=== PATIENT | male | born 1950 | race Caucasian/White ===

== ENCOUNTER 2023-07-31 16:48 | Outpatient (CLI) | payer MEDICARE, SELFPAY ==
--- NOTE | ~2023-07-31 | XR_ITS ---
EXAMINATION: XR hand LT min 3V DATE: 07/31/2023 17:05 INDICATION: Left hand injury. TECHNIQUE: 3 views of left hand were obtained. COMPARISON: None. FINDINGS: Bone alignment is normal. No fracture. There is mild osteoarthritis of triscaphe joint and severe osteoarthritis of first carpometacarpal joint. There is mild osteoarthritis of some the interp halangeal joints. There is moderate osteoarthritis of fifth distal interphalangeal joint. Splint mate rial obscures fine bone detail. IMPRESSION: 1. Polyarticular osteoarthritis. Reviewed, dictated and finalized at location A.
== END 2023-07-31 16:49 | disposition home or self-care (01) ==
LOC: ANHIMG 16:53
PROVIDERS: Visit Provider Plastic Surgery
DX: S61.412A Laceration without foreign body of left hand, initial encounter (principal); X58.XXXA Exposure to other specified factors, initial encounter; M19.042 Primary osteoarthritis, left hand
CPT/HCPCS: 73130

== ENCOUNTER 2023-08-01 10:22 | Outpatient (CLI) | payer MEDICARE, SELFPAY ==
--- NOTE | 2023-08-01 10:30 | ECG_ITS ---
Measurements Intervals [place] Rate: 44 P: 44 MS: 183 QRS: 3 QRSD: 92 T: 22 QT: 478 QTc: 413 Interpretive Statements SINUS BRADYCARDIA EARLY PRECORDIAL R/S TRANSITION BASELINE ARTIFACT- I, II, III, AVR, AVL, AVF ABNORMAL ECG NO PREVIOUS ECG AVAILABLE FOR COMPARISON Electronically Signed On 08-01-2023 11:22:51 CDT by Jose Griggs D.O.
[2023-08-01 11:02] LABS: Anion Gap 7 mmol/L (8-16); Blood Urea Nitrogen 20 mg/dL (9-20); Calcium 9.6 mg/dL (8.4-10.2); Carbon Dioxide 26 mmol/L (22-30); Chloride 104 mmol/L (98-107); Estimated Glomerular Filt Rate > 60; Glucose 119 mg/dL (65-110); Potassium 4.1 mmol/L (3.4-5.0); Sodium 137 mmol/L (137-145)
== END 2023-08-01 10:23 | disposition home or self-care (01) ==
LOC: ANHSURGERY 10:27
PROVIDERS: Anesthesiology; Visit Provider Plastic Surgery
DX: Z01.812 Encounter for preprocedural laboratory examination (principal); Z01.810 Encounter for preprocedural cardiovascular examination; I10 Essential (primary) hypertension; Z51.81 Encounter for therapeutic drug level monitoring; R00.1 Bradycardia, unspecified
CPT/HCPCS: 36415; 80048; 93005

== ENCOUNTER 2023-08-02 00:28 | Day surgery (SDC) | payer MEDICARE, SELFPAY ==
[2023-08-01 09:30] VITALS: BMI 28.3
--- NOTE | 2023-08-01 09:50 | PC.NURSE ---
Report to the Outpatient Waiting Room, entrance under the green pavilion located off [facility], at time __12:00PM on date __08/02/23 . Planned Procedure Time: _2:00PM . Time changes happen often and if your time is changed the preop area will call you the afternoon before. - You and your visitor will be asked to self-screen and do not enter if you have any COVID symptoms. - A mask is optional within the hospital at this time. Patients may have clear liquids (water, carbonated beverages, clear teas, apple juice) until 8 hours prior to surgery with a maximum of 20 ounces. - No food from midnight until time of surgery. Take the following medications with a SIP of water the morning of surgery: ___CITALOPRAM, METOPROLOL DO NOT STOP ANY OF YOUR OTHER PRESCRIPTION MEDICATIONS PRIOR TO SURGERY ?EXCEPT THE FOLLOWING Medications to discontinue per physician _HOLD ALL VITAMINS/SUPPLEMENTS STARTING NOW-08/01/23 Please no make-up, nail mongolian, hairspray, perfume, deodorant, or body powder the day of surgery. No jewelry (including any body piercings) or valuables the day of surgery, leave them at home. Please take a shower or bath the night before, or the morning of, surgery with an antibacterial soap. Wear comfortable, loose fitting clothing. Children are encouraged to wear pajamas. - Jewelry must be removed prior to entering the operating room. Rings and piercings that are not removed may be cut off. - The hospital will not accept responsibility for valuables. - Please leave all valuables, including medications, at home the day of surgery. If you are going home after surgery, a licensed wheat combine driver must drive you home. - NO public transportation without another adult if you receive anesthesia. - We recommend that an adult stay with you for 24 hours following discharge. - We also recommend that you do not drive, make important decision, drink alcoholic beverages, or take any drugs that were not prescribed by your health care provider for at least 24 hours after your discharge time. Follow any additional instructions given to you from your surgeon. If you or anyone in your household have experienced Covid symptoms in the past week, please notify your surgeon or the nurse liaison at the phone number below for possible testing. Telephone instructions given to __PATIENT and asked if any additional questions and then verbalized understanding. Patient advised to call surgeon office or pre surgery nurse liaison [phone] if any additional questions.
[2023-08-02] VITALS (10 sets, daily range): BP systolic 146–186; BP diastolic 63–99; PULSE 52–58; RESP 10–20; TEMP 36.2–36.3; O2SAT 96–100
--- NOTE | 2023-08-02 12:18 | WPDHPUPDATE1 ---
History and Physical Update Update Date/Time: 08/02/23 12:18 Patient seen and examined in pre-operative holding area. No interval change in medical history or symptoms. Continues to desire to proceed with left small finger exploration, possible fds and/or fdp repair, possible tendon excision, posible stephen jose alberto placment possible digital nerve repair and all necessary procedures.. Reviewed proceudre, post-op expectations and risks including but not limited to bleeding, infection, injury to tendon/nerve/vessel, decreased hand function, stiffness, RSD, no change or worsening of symptoms, failure of repair. Patient stated understanding and signed the consent form wishing to proceed.
[2023-08-02] MEDS: LACTATED RINGERS 1,000 ML 30 ML IV CONT ×2 (12:45→15:53)
--- NOTE | 2023-08-02 13:27 | WPDANESEPPF ---
Anes - Initial Pre Proc Eval Procedure: Operation Date: 08/02/23 14:00 Proposed Procedures p Left Small Finger Flexor Tendon Exploration and Repair - Matthew Chavez MD Date/Time: 08/02/23 13:27 Surgeon: Matthew Chavez MD Pre Op Diagnosis: laceration of flexor tendon of hand Patient Data Age: 73 Gender: M Height: 1.75 m Weight: 87.2 kg Last Vital Signs Temp 36.2 C L 08/02/23 12:58 Pulse 58 L 08/02/23 12:58 Resp 20 08/02/23 12:58 BP 146/99 H 08/02/23 12:58 Pulse Ox 97 08/02/23 12:58 O2 Del Method Room Air 08/02/23 12:58 Allergies Allergy/AdvReac Type Severity Reaction Status Date / Time bupropion [From Wellbutrin] Allergy Severe Swelling Verified 08/02/23 12:47 of Lip/Tongue/Throat Home Medications Medication Instructions Recorded Confirmed Type simvastatin 40 mg tablet 40 mg PO DAILY #90 tabs 04/17/20 08/02/23 Rx omeprazole 20 mg capsule,delayed 20 mg PO DAILY #90 caps 04/22/20 08/02/23 Rx release allopurinol 300 mg tablet 300 mg PO DAILY #90 tabs 07/23/20 08/02/23 Rx allopurinol 100 mg tablet 50 mg PO DAILY 08/01/23 08/02/23 History cholecalciferol (vitamin D3) 50 50 mcg PO DAILY 08/01/23 08/01/23 History mcg (2,000 unit) capsule citalopram 10 mg tablet 10 mg PO QAM 08/01/23 08/02/23 History citalopram 40 mg tablet 40 mg PO QAM 08/01/23 08/02/23 History hydrochlorothiazide 25 mg tablet 25 mg PO QAM 08/01/23 08/02/23 History metoprolol succinate 50 mg 50 mg PO QAM 08/01/23 08/02/23 History tablet,extended release 24 hr mometasone 50 mcg/actuation nasal 2 spray intranasal QAM 08/01/23 08/02/23 History spray multivitamin-ferrous 1 tablet PO DAILY 08/01/23 08/02/23 History fumarate-folic acid 18 mg-400 mcg tablet (Centrum Complete) Patient hx anesthesia problems: none Family hx anesthesia problems: none Results Review: All pre-operative results and documents have been reviewed as part of the pre-operative evaluation. [facility] Past Medical History Medical History (Updated 08/02/23 @ 13:27 by Ross Kaur MD) Gout HTN (hypertension) Overweight Family History Family History Other Diabetes mellitus Family history of gout Family history of malignant neoplasm of breast Hypertension Social History Social History Smoking packs per day: 1 Smoking cigarettes per day: 20.0 Years smoked: 20 Smoking pack-years: 20.00 Smoking status: Former smoker Tobacco type: cigarettes Smoking end date: 05/06/90 Alcohol intake: current Substance use: never Lack of Transportation: No Lack of Food: Never True Current Housing: I Have Housing Concerned About Future Housing: No Difficulty Paying for Meds: No Currently Unemployed: No Education: High School Diploma/GED Difficulty w/ Childcare or Family Care: No Living arrangements: with family Additional living arrangements comments: Spiritual care concerns: No Anes - Eval Final PreProcedure Day of Procedure 08/02/23 13:27 Patient weight: overweight Heart: regular rate and rhythm Lungs: clear to auscultation Airway: Mallampati scale class II Neurological: alert and oriented Last oral intake: >/= 8 hours ASA classification: III Emergent: no Anesthetic plan: proceed Anesthesia type and monitoring: general LMA and standard monitoring Results Review: All pre-operative results and documents have been reviewed as part of the pre-operative evaluation. Informed Consent: The patient's anesthetic plan and its attendant risks and benefits were discussed with the patient/family/POA. Questions were solicited and answers provided to the satisfaction of the patient/family/POA.
--- NOTE | 2023-08-02 13:43 | W.PM.PROC2 ---
Procedure Note - Detailed Date of Procedure 08/02/23 Pre-op Diagnosis laceration of left small finger Post-op Diagnosis Other (left small finger fds/fdp laceration and ulnar digital nerve and artery laceration) Procedure Performed left small finger repair fds and fdp and ulnar digital nerve Surgeon Matthew Chavez MD [employer] Chief Virginia Villarreal PA-C Anesthesia General Description of Procedure Patient was seen and examined in pre-op area. Reviewed procedure, post-op expectations and risks including but not limited to bleeding, infection, injury to tendon/nerve/vessel, decreased hand function, stiffness, RSD, no change or worsening of symptoms, failure of repair, neuroma. Patient signed consent wishing to proceed. Patient was taken back to OR on stretcher in supine position. Time out was performed with anesthesia, surgeon and staff agreeing on patient''s name, site and surgery to be performed. SCDs were placed on LEs and inflated. antibiotics were given IV. A touirniquet was placed on the LUE which was prepped and draped in usual sterile fashion after general anesthesia was administered. The LUE was exsanguinated with an Esmarch and tourniquet inflated to 250mmHG. I removed patient's previously placed sutures and used 15 blade scalpel to extend laceration in muna fashion proximally to mpj flexion crease and distally. Skin flaps were elevated with littler scissors. I spread through subq tissue and verified the laceration was into the flexor sheath and just at distal third of a2 kristi. the volar plate of pipj was also partially lacerated. I irrigated with normal saline. With flexion of the distal interphalangeal joint I was able to identify the distal end of the FDP was also able to identify the 2 slips of near the insertion of the FDS that had been lacerated. Palmar pressure and forceps were used and able to retrieve the proximal tendon ends protruding from the distal end of the A2 kristi. The proximal tendon ends were pulled out to length and locked into place with a 21 gauge needle. I a.m. really threaded the FDP through Camper's chiasm. An intact ventricular was noted I freshened the tendon ends. I proceeded with repair of the FDS using 4-0 FiberWire suture. This was done with a figure of 8 and a separate single suture. I then repaired the FDP with a 4 strand modified Odell repair and then a further [id number] using 3-0 FiberWire. I was then able to range the finger through full range of motion. There was no gapping when doing so. It appeared that the FDP repair was able to fit at the distal end of the A2 kristi given its partial laceration. Now satisfied with the tendon repair I proceeded with further dissection on the ulnar aspect of the finger I identified the ulnar neurovascular bundle which had been completely lacerated. I dissected out the proximal and distal ends to achieve length. I freshened the ends of the nerve. And then proceeded with ulnar digital nerve repair with 8 0 nylon suture under loupe magnification there was good coaptation and minimal tension even with the finger and extension. the ulnar digital artery was cauterized with bipolar. I irrigated with normal saline. I trimmed the nonviable irregular skin edges from the previous laceration. I trans excess and damaged nonviable tissue portions of the A2 kristi and volar plate. The joint appeared stable. Closure was done with 4-0 chromic suture followed by Xeroform 4 x 4 Tho and ulnar gutter splint was then applied in safe position and secured with an Kd bandage after the tourniquet was let down noting that the hand and finger was warm and well perfused. Prior to dressing placement I also injected 6 cc of 1% lidocaine and 0.5% Marcaine plain for digital block in the palm. The patient was awakened from anesthesia and transferred to the recovery room in stable condition. Complications of the procedure were none. Estimated blood loss was 1 cc. Disposition ear;
[2023-08-02] MEDS: ceFAZolin 2 GM/D5W 50 ML 2 GM/50 ML BAG IVPB (14:25)
[2023-08-02] MEDS: BUPivacaine HCL 0.5% 10 ML AMP 20 ML INFILTRATE (15:13)
[2023-08-02] MEDS: LIDOCAINE HCL 1% LOCAL INJ 20 ML VIAL INFILTRATE (15:13)
--- NOTE | 2023-08-02 16:13 | SUR.PHASEI ---
1613: Simple mask removed.
[2023-08-02] MEDS: oxyCODONE HCL (*CRX) 5 MG TAB IR PO (16:51)
[2023-08-02] MEDS: hydrALAZINE HCL 20 MG/ML VIAL 5 MG IV PUSH ×2 (17:45→18:00)
== END 2023-08-02 18:49 | disposition home or self-care (01) ==
PROVIDERS: Visit Provider Plastic Surgery
PROC: (CPT 26356; principal; 2023-08-02 14:00)
DX: S66.127A Laceration of flexor muscle, fascia and tendon of left little finger at wrist and hand level, initial encounter (principal); S64.497A Injury of digital nerve of left little finger, initial encounter; Z87.891 Personal history of nicotine dependence; I10 Essential (primary) hypertension; M10.9 Gout, unspecified; W26.0XXA Contact with knife, initial encounter
CPT/HCPCS: 26356 ×2; 64831; 36415; 80048; 93005; A9270; J0360; J0690; J2405; J2704; J3010; J7120

== ENCOUNTER 2024-11-13 15:21 | Outpatient (CLI) | payer MEDICARE, SELFPAY ==
--- NOTE | ~2024-11-13 | XR_ITS ---
EXAMINATION: XR abdomen/kub 1V DATE: 11/13/2024 15:57 INDICATION: Pancreatic stent. TECHNIQUE: A supine view of the abdomen on 2 radiographs was obtained. COMPARISON: None. FINDINGS: There are no dilated loops of bowel. There is a pancreatic stent in expected position. Ther e is a surgical drain in right upper quadrant of the abdomen. There is a total right hip arthroplasty . IMPRESSION: 1. Pancreatic stent in expected position. Reviewed, dictated and finalized at location A. 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
== END 2024-11-13 15:22 | disposition home or self-care (01) ==
LOC: GOSHIMG 15:25
DX: Z96.89 Presence of other specified functional implants (principal)
CPT/HCPCS: 74018